=== PATIENT | male | born 1960 | race Caucasian/White ===

== ENCOUNTER 2023-08-16 07:39 | Emergency (ER) | payer OTHER, SELFPAY ==
[2023-08-16 07:44] VITALS: BP 130/109
--- NOTE | 2023-08-16 08:28 | ED.GENMED ---
History of Present Illness
<CARSON Dee Last Filed: 08/16/23 16:41>
General
Chief Complaint: Skin Problem
Source: patient
Exam Limitations: none
Time Seen by Provider: 08/16/23 07:55
Nursing documentation reviewed up to this point in time: agreed with
Travel History
Have you had any contact with someone who has COVID-19?: No
Do you have any symptoms of coronavirus? Fever > 100 degrees, chills, cough, shortness of breath, sore throat, loss of taste or smell, muscle aches, or headache?: No
History of Present Illness
History of Present Illness:
63-year-old male with history of hypertension presents with a slightly painful rash to his face, he says he had a right-sided headache about 5 days ago that was mild to moderate. The headache resolved and then he noticed a lesion on his right chin
that he thought was may be from shaving. He started having more lesions in his mouth on the right side of his inner lower lip as well as his right tongue and the back of his right throat. This started yesterday. He went to his family doctor and
was given Bactrim twice daily, mupirocin cream which patient has used a few times. He woke up this morning with slightly worsening lip swelling and so he decided to come in. He has not had a fever, severe pain, inability to swallow, drooling,
trouble breathing, vomiting, eye pain or irritation, ear pain. Patient has had chickenpox in the past. Yesterday they told him he could have shingles but they treated him as staph infection instead.
Past History
<CARSON Dee Filed: 08/16/23 16:41>
Past History
ED Past Medical History: Asthma and HTN
Social History
Tobacco: Non-smoker
Alcohol: None
Drug: None
Personal:
Review of Systems
<CARSON Dee Filed: 08/16/23 16:41>
Review of Systems
Allergies reviewed?: Yes
All Other Systems: Not applicable
Phy Exam
<Liliam Caruso PA-C - Last Filed: 08/16/23 16:41>
Physical Exam
Physical Exam:
GENERAL: Alert , in no apparent distress
EYE: pupils equal and reactive
NECK: Supple
ENT: b/l TM s clear, pharynx erythematous but no tonsillar hypertrophy or exudates
CARDIAC: Regular rate and rhythm, no edema
LUNGS: Clear breath sounds bilaterally, no acute respiratory distress, no wheezes/rales/rhonchi, occ cough
ABDOMEN: Soft, without focal tenderness, no r/g, no cvat, normal bowel sounds
NEUROLOGICAL: Alert and oriented, no focal neuro deficits
SKIN: Warm and dry,
MUSCULOSKELETAL: No edema, well perfused.
PSYCH: Normal and appropriate interaction.
Course
<Liliam Caruso PA-C - Last Filed: 08/16/23 16:41>
Orders/Labs/Results
Orders:
Orders
08/16/23 08:32
Prednisone [Deltasone] 50 mg PO NOW STA
08/16/23 08:42
Valacyclovir HCl [Valtrex] 1,000 mg PO NOW STA
Vital Signs
Initial and Last Documented VS:
Initial Vital Signs
Temp Pulse Resp BP Pulse Ox
99.0 F 86 16 130/109 100
08/16/23 07:44 08/16/23 07:44 08/16/23 07:44 08/16/23 07:44 08/16/23 07:44
Last Documented Vital Signs
Temp Pulse Resp BP Pulse Ox
99.0 F 79 16 142/88 99
08/16/23 07:44 08/16/23 08:45 08/16/23 08:45 08/16/23 08:45 08/16/23 08:45
<Andriy Negron DO - Last Filed: 08/16/23 08:35>
Orders/Labs/Results
Orders:
Orders
08/16/23 08:32
Prednisone [Deltasone] 50 mg PO NOW STA
08/16/23 08:42
Valacyclovir HCl [Valtrex] 1,000 mg PO NOW STA
Vital Signs
Initial and Last Documented VS:
Initial Vital Signs
Temp Pulse Resp BP Pulse Ox
99.0 F 86 16 130/109 100
08/16/23 07:44 08/16/23 07:44 08/16/23 07:44 08/16/23 07:44 08/16/23 07:44
Last Documented Vital Signs
Temp Pulse Resp BP Pulse Ox
99.0 F 79 16 142/88 99
08/16/23 07:44 08/16/23 08:45 08/16/23 08:45 08/16/23 08:45 08/16/23 08:45
<Liliam Caruso PA-C - Last Filed: 08/16/23 16:41>
MDM/Problems Addressed
Differential Diagnosis Includes:
zoster, impetigo, viral stomatitis
MDM/Problems Addressed:
63 y/o M with no sig pmh
here with skin eruption right chin 3 days ago, wores with lesions intraoral
not significantly painful
able to swallow well
no fever
went to pcp yesterday and treated with topical and oral abx
worsneing slightly today
lesions appear vesicular and likely to be herpes zoster
he has some vesicles intraorally right side, righ ttongue, right inner lower lip c/w dermatome v3
also some lesions in the scalp with v3 distribution
well appearing
seen by ed attending who agreed
will d/c the bactrim
continue mupirocen on the chin lesion, he has some erythema around this
short course steroids, and valacycolvir
<Liliam Caruso PA-C - Last Filed: 08/16/23 16:41>
*Critical Care Note
Total Time (30-74mins, 75-104mins- exclusive of procedures): Not Applicable
ED Attending Note
<Liliam Caruso PA-C - Last Filed: 08/16/23 16:41>
-
Portions of this chart may have been created with voice recognition software.� Occasional wrong word or��sound alike� substitutions may have occurred due to the inherent limitations of voice recognition software.
<Andriy Negron DO - Last Filed: 08/16/23 08:35>
ED Attending Note
I performed the substantive portion of visit, reviewed & personally made and approve the management plan that is documented in note by myself or ASHLEIGH.: Yes
ED Attending Note:
Seen with PA examined independently right facial dermatomal distribution itchy painful rash now with blisters seen by PCP told it could be staph or shingles treated with Bactrim immunosuppressant, now looks more like shingles will start antivirals
Discharge Plan
Departure
Patient Disposition: Home (Routine Discharge)
Date of Disposition: 08/16/23
Time of Disposition: 08:59
Patient with high blood pressure during this ER visit?: Yes
Condition: Fair
Discharge Problem:
Shingles
Instructions: Shingles, BLOOD PRESSURE
Prescriptions:
New
valacyclovir 1 gram tablet
1,000 mg PO Q8H Qty: 30 0RF
prednisone 50 mg tablet
50 mg PO DAILY Qty: 3 0RF
mupirocin 2 % ointment
1 applic topical TID 7 Days Qty: 22 0RF
Activity Restrictions/Additional Instructions:
YOUR RASH IS MORE LIKELY SHINGLES THAN BACTERIAL INFECTION
STOP THE BACTRIM
YOU CAN CONTINUE THE MUPIROCIN OINTMENT ON YOUR CHIN PRESCRBIED
TAKE PREDNISONE ONCE A DAY FOR 3 MORE DAYS STARTING TOMROROW
USE VALACYCLOVIR 3 TIMES ADAY FOR 7-10 DAYS
YOU ARE CONTAGIOUS UNTIL THE LESIONS CRUST OVER AND YOU STOP GETTING NEW LESIONS
AVOID ELDERLY, AND YOUNG CHILDREN
TAKE TYLENOL NEEDED FOR PAIN
SHOULD YOU DEVELOP EYE PAIN, IRRITAION, BLURRY VISION ,EAR PAIN, TROUBLE SWALLOWING, SEVERE FAICAL SWELLING OR RENDESS PLEASE RETURN IMMEDIATELY
Interventions
Interventions:
*Risk Screen - Suicide Last Done: 08/16/23 08:45
*General Assessment Last Done: 08/16/23 08:45
*Neglect/Abuse Screening Last Done: 08/16/23 08:45
ED- Fall Risk Assessment Last Done: 08/16/23 08:45
*ED COVID-19 Vaccine History Last Done: 08/16/23 07:44
*Nursing Disposition Last Done: 08/16/23 09:15
ED-Skin Assessment Last Done: 08/16/23 08:45
Discharge Date and Time
Discharge Date/Time: 08/16/23 09:15
Print Language: MONGOLIAN
[2023-08-16 08:45] VITALS: BP 142/88
[2023-08-16] MEDS: VALTREX 1000 MG PO (09:12)
[2023-08-16] MEDS: DELTASONE 50 MG PO (09:12)
== END 2023-08-16 09:15 | disposition home or self-care (01) ==
LOC: EMR 07:39
PROVIDERS: EMERGENCY PHYSICIAN Emergency Medicine; FAMILY PHYSICIAN Internal Medicine
DX: B02.9 Zoster without complications (principal); R22.0 Localized swelling, mass and lump, head; R51.9 Headache, unspecified; I10 Essential (primary) hypertension; J45.909 Unspecified asthma, uncomplicated; E78.5 Hyperlipidemia, unspecified
CPT/HCPCS: 99283